=== PATIENT | male | born 1990 | race Caucasian/White ===

== ENCOUNTER 2020-07-26 08:10 | Outpatient (RCR) | payer BC, SELFPAY | END 2020-08-30 23:59 | LOC: IMMUN 08:10 | PROVIDERS: PCP Family Medicine; Referring Provider Family Medicine; Visit Provider Family Medicine | DX: Z23 Encounter for immunization (principal) | CPT/HCPCS: 0001A; 0002A; 91300 ==

== ENCOUNTER → 2021-01-31 08:01 | Outpatient (CLI) | payer BC, SELFPAY | PROVIDERS: PCP Family Medicine; Referring Provider Physician Assistant; Visit Provider Physician Assistant | DX: Z11.52 Encounter for screening for COVID-19 (principal) | CPT/HCPCS: 87635; U0005; U0003 ==

== ENCOUNTER 2021-05-07 23:45 | Emergency (ER) | payer BC, SELFPAY ==
[2021-05-07 23:46] VITALS: BP 135/89; PULSE 81; TEMP 36.6; O2SAT 96; BMI 28.3
[2021-05-07 23:49] VITALS: BP 135/89; PULSE 84; RESP 28; TEMP 36.6; O2SAT 96
--- NOTE | 2021-05-08 00:02 | RAD_ITS ---
HISTORY: syncope EXAMINATION/TECHNIQUE: XR Chest 1 View: COMPARISON: None FINDINGS: LINES/DEVICES: None. LUNGS: No airspace consolidation. Unremarkable interstitium. No effusion. No pneumothorax. MEDIASTINUM: No cardiomegaly. MUSCULOSKELETAL: No acute osseous finding. RAD/Chest 1 View (Portable) IMPRESSION: No evidence of acute cardiopulmonary process. at 0036 Reported and signed by: Tanner Mason MD Electronically Signed: Tanner Mason MD at 0:34 EST ,
--- NOTE | 2021-05-08 00:02 | EKG12_ITS ---
Test Reason : DYSRHYTHMIA Blood Pressure : / mmHG Vent. Rate : 077 BPM Atrial Rate : 077 BPM P-R Int : 176 ms QRS Dur : 086 ms QT Int : 336 ms P-R-T Axes : 063 048 044 degrees QTc Int : 380 ms Normal sinus rhythm Normal ECG Confirmed by RICK MENARD, GREGG ([id number]), newspaper copy editor JAIME KAHN ([id number]) on 05/09/2021 10:10:55 AM Referred By: YANN Confirmed By:GREGG CABRERA MD
--- NOTE | 2021-05-08 00:02 | CT_ITS ---
HISTORY: fall TECHNIQUE: Helically acquired images were obtained of the cervical spine without contrast. 2D reformatted images were reviewed. A radiation dose optimization technique was used for this scan. COMPARISON: None FINDINGS: # of images incl. paperwork: 442 SOFT TISSUES: No prevertebral soft tissue swelling. ALIGNMENT: Straightening of the normal cervical lordosis without listhesis. FRACTURE: No fracture or acute compression deformity. DISC SPACES/POSTERIOR ELEMENTS: Slight posterior disc osteophyte complexes C3-C4 and C4-C5 without significant spinal canal or neuroforaminal stenosis LUNG APICES: Visualized portions are unremarkable. THYROID: Visualized portions are unremarkable. SKULL BASE: Visualized portions are unremarkable. CT/Spine Cervical without Contras IMPRESSION: No acute fracture or subluxation. Mild straightening of the normal cervical lordosis which can be positional, degenerative, or secondary to muscle spasm. Minimal spondylosis as above. Individualized dose optimization techniques were used for this CT. at 0109 Reported and signed by: Tanner Mason MD Electronically Signed: Tanner Mason MD at 1:08 EST ,
--- NOTE | 2021-05-08 00:02 | CT_ITS ---
HISTORY: syncope TECHNIQUE: Multiple axial images were obtained of the brain without intravenous contrast. Coronal and sagittal reformats obtained. Bone algorithm axial images obtained. A radiation dose optimization technique was used for this scan. COMPARISON: None FINDINGS: # of images incl. paperwork: 244 HEMORRHAGE: No evidence of acute intracranial hemorrhage. CEREBRAL PARENCHYMA: --Volume: Unremarkable for age. --White matter: Unremarkable. --Mass: No evidence of intracranial mass. --Stroke: Gomes-white matter differentiation is preserved. VENTRICULAR SYSTEM: No hydrocephalus. MASS EFFECT: No midline shift or focal sulci effacement. Basal cisterns are preserved. SCALP: No large scalp hematoma. CALVARIUM/SKULL BASE: No fracture. PARANASAL SINUSES: Scattered mild mucoperiosteal thickening MASTOID AIR CELLS: Clear. ORBITS: Imaged portions are unremarkable. ASPECTS acute stroke score: 10 CT/Brain/Head without Contrast IMPRESSION: No CT evidence of acute intracranial hemorrhage or injury. Scattered mild sinus disease. Individualized dose optimization techniques were used for this CT. at 0113 Reported and signed by: Tanner Mason MD Electronically Signed: Tanner Mason MD at 1:11 EST ,
--- NOTE | 2021-05-08 00:04 | EX.ED.VIS.HA ---
HPI History of Present Illness Chief Complaint: Head Injury Narrative Narrative: 30-year-old male presenting for evaluation after an episode of syncope. His reports that she heard a crash and went to help him up and the patient felt like he was going to faint again when trying to get up. He states he was unconscious and does not recall how he got where he was at. He does report feeling confused and his states he seemed confused. He is currently at his baseline. Patient has no history of syncope. He was assisted by his family and walking so he can come to the emergency room. He states he does still feel lightheaded. The patient states that a couple hours before he had a severe headache and took Excedrin Migraine. He does not describe this as a thunderclap headache or acute onset headache. The patient reports that he has been ill for a couple of days. He describes nausea without vomiting. He has had diarrhea but does not describe this is diffuse. He states has been drinking Gatorade and has been urinating. He states he has had a fever but his temperature is only been 100 ?F. He does have some nasal congestion and slight cough. Patient reports that he had COVID 3 months ago and recovered. Patient denies chest pain. He states that he used to have high blood pressure but he has lost a lot of weight and no longer has this. He states that his brother at a young age due to poor lifestyle and he was morbidly obese. He states that he in his sleep. He also states that his brother was ill chronically prior to this. Patient states this is what drove him to lose weight. PFSH PFS Home Medications uopblps-yfcozrkiqwuok-cbdwrqzi [Excedrin Migraine] 1 tab PO Q6H PRN 05/07/21 [History Last Taken Unknown] ondansetron 4 mg PO Q8H PRN #10 tab 05/08/21 [Rx Last Taken Unknown] Allergy/AdvReac Type Severity Reaction Status Date / Time No Known Allergies Allergy Verified 05/07/21 23:51 Surgical History History of tonsillectomy [place] teeth extracted Social History Smoking Status: Never smoker ROS ROS ED Constitutional Constitutional ED: Reports subjective; Denies chills or sweats Eyes Eyes: Denies blurry vision or diplopia ENT ENT ED: Reports rhinorrhea Cardiovascular Cardiovascular: Denies chest pain or palpitations Respiratory/Chest Respiratory/Chest: Reports cough; Denies dyspnea Gastrointestinal Gastrointestinal: Reports diarrhea and nausea; Denies abdominal pain Genitourinary Genitourinary ED: Denies dysuria or hematuria Musculoskeletal Musculoskeletal: Denies arthralgias or myalgias Integumentary Denies Abrasions or rash Neurologic Neurologic: Reports headache(s); Denies paresthesias or weakness Psychiatric Psychiatric: Denies anxiety or depression EXAM Physical Exam Const Vital Signs: 05/07/21 23:46 05/07/21 23:49 05/07/21 23:50 Temperature 97.9 F 97.9 F Temperature Source Temporal Temporal Pulse Rate 81 84 Pulse Rate [Lying] Pulse Rate [Sitting (for 1 minute prior to obtaining)] Pulse Rate [Standing (for 1 minute prior to obtaining)] Respiratory Rate 28 H Respiratory Effort Normal Respiratory Pattern Normal Blood Pressure 135/89 H 135/89 H Blood Pressure [Lying] Blood Pressure [Sitting (for 1 minute prior to obtaining)] Blood Pressure [Standing (for 1 minute prior to obtaining)] Blood Pressure Mean 104 104 Blood Pressure Mean [Lying] Blood Pressure Mean [Sitting (for 1 minute prior to obtaining)] Blood Pressure Mean [Standing (for 1 minute prior to obtaining)] Pulse Ox 96 96 Oxygen Delivery Method Room Air Room Air 05/08/21 00:10 05/08/21 00:12 05/08/21 01:22 Temperature Temperature Source Pulse Rate 66 Pulse Rate [Lying] 75 Pulse Rate [Sitting (for 1 minute prior to obtaining)] 85 Pulse Rate [Standing (for 1 minute prior to obtaining)] 92 Respiratory Rate 18 Respiratory Effort Respiratory Pattern Blood Pressure 125/78 H Blood Pressure [Lying] 131/81 H Blood Pressure [Sitting (for 1 minute prior to obtaining)] 121/87 H Blood Pressure [Standing (for 1 minute prior to obtaining)] 121/90 H Blood Pressure Mean 93 Blood Pressure Mean [Lying] 97 Blood Pressure Mean [Sitting (for 1 minute prior to obtaining)] 98 Blood Pressure Mean [Standing (for 1 minute prior to obtaining)] 100 Pulse Ox 98 Oxygen Delivery Method Room Air Room Air Positive well nourished General Appearance ED: NAD; Negative for pallor HEENT Reports normocephalic and moist mucous membranes atraumatic Eyes PERRL and EOMs intact bilaterally Neck no lymphadenopathy, supple and no meningeal signs Resp normal respiratory effort and clear to auscultation bilaterally Cardio regular rate and regular rhythm GI non-tender and non-distended Auscultation: normoactive bowel sounds Palpation: soft Back/Spine no CVA tenderness Neuro CN's II-XII intact bilaterally and no sensory deficits noted Sensorium / Orientation: awake and alert Speech: speech normal Motor Exam: strength 5/5 throughout Psych mental status grossly normal Skin General Skin Exam: Negative for jaundice or pallor Rashes: no rashes MDM MDM MDM Narrative Medical decision making narrative: Patient presenting with mild viral symptoms for the last couple of days. Its been throughout his whole household. He states that he is drinking plenty of fluids but not eating very much. He states he fell and hit his head and was unconscious for short duration. When trying to get back up he felt lightheaded. On arrival he was still experiencing this. He is not having chest pain or shortness of breath. Has not had a fever. Patient does complain of rhinorrhea and congestion. He was given Zofran for his nausea. Given his episode of syncope and a history of his brother of a cardiac source so young I did obtain a cardiac work-up. His EKG on my interpretation is normal sinus rhythm with a ventricular to 77 bpm without sign of ischemic change or dysrhythmia. Specifically there is no WPW, Brugada syndrome, hypertrophic cardiomyopathy findings. Chest x-ray on my interpretation shows no acute cardiopulmonary process and the radiologist does agree. Because the patient had a headache and fell and is still lightheaded after LOC did obtain a CT of the brain which is negative for acute intracranial pathology although there is some noted scattered sinus findings. CT of the cervical spine shows no acute fracture or subluxation but is interpreted as straightening of the normal lordosis. CBC, BMP, LFTs all within normal limits. High-sensitivity troponin is less than 3. Orthostatic vitals were performed and his blood pressures were appropriate however his heart rates goes from 75-92. Patient was given a liter of IV fluids. Currently patient feels well. Discussed at length his negative work-up. Based on [place] syncope rule he is low risk and can be discharged home. I discussed with him concussion signs and symptoms as well as precautions for return. He and his acknowledge understanding. He does not need to be tested for Covid as he just had just 3 months ago. He request a work note for today which was provided. He is given Zofran for home. Impression: 1. viral syndrome 2. Syncope 3. Concussion Lab Data Labs: Laboratory Results - last 24 hr 05/07/21 05/07/21 05/07/21 23:55 23:55 23:55 WBC 7.0 RBC 5.25 Hgb 16.2 Hct 45.2 MCV 86.1 MCH 30.9 MCHC 35.8 RDW Std Deviation 37.2 RDW Coeff of Marj 11.8 Plt Count 225 MPV 8.9 Immature Gran % (Auto) 0.300 Neut % (Auto) 78.9 H Lymph % (Auto) 13.6 L [place] % (Auto) 6.0 Eos % (Auto) 1.1 Baso % (Auto) 0.1 Absolute Neuts (auto) 5.5 Absolute Lymphs (auto) 0.95 Nucleated RBC % 0 Sodium 136 Potassium 3.8 Chloride 106 Carbon Dioxide 25.0 Anion Gap 5 BUN 11 Creatinine 0.96 Estim Creat Clear Calc 132.01 Est GFR (MDRD) Af Amer 119 Est GFR (MDRD) Non-Af 99 BUN/Creatinine Ratio 11.5 Glucose 125 H Calcium 8.8 Total Bilirubin 0.70 Direct Bilirubin 0.17 AST 12 L ALT 20 Alkaline Phosphatase 71 Troponin I High Sens < 3 L Total Protein 7.2 Albumin 3.7 Globulin 3.5 Radiography Diagnostic Testing: Clinical Impression(s) from Imaging Studies Brain CT 05/08/21 00:02 IMPRESSION: No CT evidence of acute intracranial hemorrhage or injury. Scattered mild sinus disease. Individualized dose optimization techniques were used for this CT. at 0113 Reported and signed by: Tanner Mason MD Electronically Signed: Tanner Mason MD at 1:11 EST , Cervical Spine CT 05/08/21 00:02 IMPRESSION: No acute fracture or subluxation. Mild straightening of the normal cervical lordosis which can be positional, degenerative, or secondary to muscle spasm. Minimal spondylosis as above. Individualized dose optimization techniques were used for this CT. at 0109 Reported and signed by: Tanner Mason MD Electronically Signed: Tanner Mason MD at 1:08 EST Reading Location ID and State: [facility] / [place] Tel , Service support , Chest X-Ray 05/08/21 00:02 IMPRESSION: No evidence of acute cardiopulmonary process. at 0036 Reported and signed by: Tanner Mason MD Electronically Signed: Tanner Mason MD at 0:34 EST , Discharge Plan Triage Chief Complaint: Head Injury ED Provider: Anthony Flood Dx/Rx/DC Orders Instructions: ED Concussion, ED Fainting, Uncertain Cause, ED Viral Syndrome (Adult) Prescriptions: New ondansetron 4 mg tablet,disintegrating 4 mg PO Q8H PRN (Reason: nausea and vomiting) Qty: 10 RF: 0 No Action Excedrin Migraine 250-250-65 mg Tablet 1 tab PO Q6H PRN (Reason: Headache) RF: 0 Stand Alone Forms: ED Work / School Excuse Primary Care Provider: Rob Martinez Referrals: Rob Martinez MD [Primary Care Provider] - Disposition Disposition: Home, Self Care
[2021-05-08] MEDS: Ondansetron 4 MG/2 ML Vial IV (00:09)
[2021-05-08 00:12] VITALS: BP 121/87; BP 121/90; BP 131/81; PULSE 75; PULSE 85; PULSE 92
[2021-05-08 00:13] LABS: Absolute Lymphocyte Count 0.95 X10^3/uL (0.83-4.51); Absolute Neutrophil Count 5.5 X10^3/uL (2.0-7.7); Basophil# 0.01 X10^3/uL; Basophil% 0.1 % (0-1); Eosinophil# 0.08 X10^3/uL; Eosinophils% 1.1 % (0-5); Hematocrit 45.2 % (40-54); Hemoglobin 16.2 g/dL (13.0-16.5); Lymphocyte # 0.95 X10^3/ul (0.83-4.51); Lymphocyte % 13.6 % (19-41); Mean Corp Hgb Conc 35.8 g/dL (32-36); Mean Corpuscular Hgb 30.9 pg (27.0-32.0); Mean Corpuscular Volume 86.1 fL (80-94); Mean Platelet Vol. 8.9 fl (6.2-12.0); Monocyte# 0.42 X10^3/uL; NRBC Flagged by Analyzer 0 % (0-5); Neutrophil # 5.49 X10^3/uL (2.7-7.7); Neutrophil % 78.9 % (47-70); Platelet Count 225 K/mm3 (150-450); RBC Distribution Width CV 11.8 % (11.6-14.6); RBC Distribution Width SD 37.2 fl (35.1-43.9); Red Blood Count 5.25 M/mm3 (4.6-6.2)
[2021-05-08 00:39] LABS: Anion Gap 5 (5-15); BUN 11 mg/dL (7-18); BUN/Creat Ratio 11.5 RATIO (10-20); Calcium,Total 8.8 mg/dL (8.5-10.1); Chloride 106 mmol/L (98-107); Creatinine, Serum 0.96 mg/dL (0.70-1.30); EST Glomerular Filtration Rate 99 mL/min (>60); Est Glom Filt Rate - Afr Amer 119 mL/min (>60); Estimated Creatinine Clearance 132.01 ml/min; Glucose 125 mg/dL (74-106); Potassium 3.8 mmol/L (3.5-5.1); Sodium Level 136 mmol/L (136-145); Troponin-I HS < 3 pg/mL (3.0-78.0)
[2021-05-08 00:40] LABS: AST(SGOT) 12 U/L (15-37); Alanine Aminotransfer ALT/SGPT 20 U/L (16-61); Albumin, Serum 3.7 g/dL (3.2-5.0); Alkaline Phosphatase 71 U/L (45-117); Bilirubin, Direct 0.17 mg/dL (0.00-0.30); Globulin 3.5 g/dL (2.2-4.2); Protein, Total 7.2 g/dL (6.4-8.2)
[2021-05-08] MEDS: 0.9% Normal Saline 1,000 ML 999 ML IV (00:45)
[2021-05-08 01:22] VITALS: BP 125/78; PULSE 66; RESP 18; O2SAT 98
[2021-05-08 01:44] VITALS: BP 138/85; PULSE 70; RESP 22; O2SAT 97
== END 2021-05-08 01:47 | disposition home or self-care (01) ==
PROVIDERS: Emergency Provider Student in an Organized Health Care Education/Training Program; PCP Family Medicine; Visit Provider Student in an Organized Health Care Education/Training Program
DX: S06.0X0A Concussion without loss of consciousness, initial encounter (principal); E66.01 Morbid (severe) obesity due to excess calories; J34.89 Other specified disorders of nose and nasal sinuses; R09.81 Nasal congestion; R11.0 Nausea; B34.9 Viral infection, unspecified; R19.7 Diarrhea, unspecified; R03.0 Elevated blood-pressure reading, without diagnosis of hypertension
CPT/HCPCS: 70450; 71045; 72125; 80048; 80076; 84484; 85025; 93005; 99285; J7030; A4216; J2405

== ENCOUNTER 2021-12-22 23:23 | Emergency (ER) | payer BC, SELFPAY ==
[2021-12-22 23:24] VITALS: BP 150/88; PULSE 91; RESP 18; TEMP 36.6; O2SAT 98; BMI 28.5
--- NOTE | 2021-12-22 23:50 | EX.ED.DYSGE1 ---
HPI History of Present Illness Chief Complaint: Dizziness Narrative Narrative: 31-year-old male presenting with lightheadedness and dizziness. He states he has been having problems with this for several months. He states that he has recently been diagnosed with anxiety after testing this in the office and he was started on Zoloft 3 days ago when he is taking a half dose of this for the first 2 weeks. He states that he was diagnosed with this because he noticed that in crowds he would become a little more anxious and his heart rate would race and his blood pressure would spike. During his last office visit this occurred. He states he is not anxious to go to the doctor's office but he did experience stress and it was noted. He notes that he has been a little bit lightheaded over the last 3 days. Today he went to have a bowel movement and states he was straining a little bit while he was on the toilet he felt like he was a little bit faint and he became sweaty and nauseous. He also states he had some palpitations. This resolved. He states he has had an echocardiogram done last year and they wanted to repeat it again this year to make sure nothing changed. He is also had a CT of his brain and MRI of his brain as well. He states all of this was negative. He does not have a headache. Denies fevers or chills. He had some nausea but this resolved. [facility] Medical History Anxiety Depression Dizziness Home Medications epdfvyo-mrpwhjhxwtpum-sqwicmfd 250 mg-250 mg-65 mg tablet (Excedrin Migraine) 1 tab PO Q6H PRN Headache 05/07/21 [History Last Taken Unknown] cholecalciferol (vitamin D3) 1,250 mcg (50,000 unit) capsule 1,250 mcg PO DAILY 12/22/21 [History Last Taken Unknown] sertraline 50 mg tablet 25 mg PO DAILY 12/22/21 [History Last Taken Unknown] meclizine 25 mg tablet 25 mg PO TID PRN dizziness #20 tabs 12/23/21 [Rx Last Taken Unknown] promethazine 25 mg tablet 25 mg PO Q6H PRN nausea and vomiting #20 tabs 12/23/21 [Rx Last Taken Unknown] Allergy/AdvReac Type Severity Reaction Status Date / Time No Known Allergies Allergy Verified 05/07/21 23:51 Surgical History History of tonsillectomy [place] teeth extracted Social History Smoking Status: Never smoker EXAM Physical Exam Const Vital Signs: 12/22/21 23:24 12/22/21 23:27 12/23/21 00:06 Temperature 97.8 F Temperature Source Temporal Pulse Rate 91 Pulse Rate [Lying] 86 Pulse Rate [Sitting (for 1 minute prior to obtaining)] 88 Pulse Rate [Standing (for 1 minute prior to obtaining)] 110 H Respiratory Rate 18 Respiratory Effort Normal Respiratory Pattern Normal Blood Pressure 150/88 H Blood Pressure [Lying] 136/80 H Blood Pressure [Sitting (for 1 minute prior to obtaining)] 137/86 H Blood Pressure [Standing (for 1 minute prior to obtaining)] 119/82 H Blood Pressure Mean 108 Blood Pressure Mean [Lying] 98 Blood Pressure Mean [Sitting (for 1 minute prior to obtaining)] 103 Blood Pressure Mean [Standing (for 1 minute prior to obtaining)] 94 Pulse Ox 98 Oxygen Delivery Method Room Air Positive well nourished General Appearance ED: NAD; Negative for pallor HEENT Reports moist mucous membranes HEENT Narrative: Haley-Hallpike positive bilaterally. Nystagmus noted greater to the left than to the right. Eyes PERRL and EOMs intact bilaterally General Eye ED: Negative for pale conjunctiva or scleral icterus Chest Wall inspection of chest normal Resp normal respiratory effort Cardio regular rate and regular rhythm GI normal to inspection, nondistended, normoactive bowel sounds Extremity normal to inspection Neuro oriented x3 and CN's II-XII intact bilaterally Sensorium / Orientation: alert Motor Exam: strength 5/5 throughout Psych mental status grossly normal Skin no rashes or lesions noted General Skin Exam: Negative for jaundice or pallor MDM MDM MDM Narrative Medical decision making narrative: Patient presenting with lightheadedness and dizziness which she describes as not quite vertiginous in nature. He states he has been having episodes of blood pressure spikes and heart rate spikes which he was recently diagnosed with anxiety. He started on Zoloft 3 days ago and is taking this currently. He is not sure if this is a medication side effect. He states he had an echocardiogram which was normal. He had normal MRI and CT of the brain. He had normal outpatient lab work. He states is not an active diagnosis for what his symptoms are except for the anxiety. He also states that he felt lightheaded and had palpitations while on the commode today but he also states he was straining to defecate prior to this. When he stood up he felt nauseous and lightheaded. Patient symptoms resolved. Reviewed the medical record and it is exact same symptoms he had in the doctor's office when he was there on 12/20/2021. MRI was reviewed from 12/10/2021 and this was normal. He had follow-up outpatient lab work after his basic lab work was returned on his last visit to the ER. Lipid profile was normal, TSH normal, B12 normal, folic acid normal. I will check an EKG to assess for dysrhythmia, I will also check left side vital signs. Patient given meclizine for the reproducible vertiginous dizziness. EKG normal sinus rhythm with ventricular rate of 94 bpm without sign of ischemic change. [place] interval 170 ms, QRS duration 90 ms, QTC 420 ms. Orthostatic vital signs are not definitive. His blood pressure goes from 136/80 lying to 137/86 sitting and then do drop to 119/82. Heart rate stays about the same. On reevaluation at 1:10 AM the patient states his dizziness is nearly resolved. He does not feel lightheaded now. He does not have any nausea. Again the lightheadedness is not a new issue it is possible he could have vasovagal while defecating. He does again have some reproducible vertigo which is better with meclizine. It is also possible his medication side effect. I counseled him I will give him some meclizine for home to help with the vertigo. He will have some Phenergan for nausea. I recommended he continue his sertraline. Patient amenable to this and stable for discharge. Impression: 1. lightheadedness 2. Near syncope 3. Vertigo Lab Data Attestation: I reviewed the patient's lab results. Discharge Plan Triage Chief Complaint: Dizziness ED Provider: Anthony Flood Dx/Rx/DC Orders Instructions: ED BPV Vertigo, ED Near-Fainting- Vagal Reaction Prescriptions: New meclizine 25 mg tablet 25 mg PO TID PRN (Reason: dizziness) Qty: 20 0RF promethazine 25 mg tablet 25 mg PO Q6H MDD wdf PRN (Reason: nausea and vomiting) Qty: 20 0RF No Action Excedrin Migraine 250-250-65 mg Tablet 1 tab PO Q6H PRN (Reason: Headache) sertraline 50 mg tablet 25 mg PO DAILY cholecalciferol (vitamin D3) 1,250 mcg (50,000 unit) capsule 1,250 mcg PO DAILY Label Comments: take 1 capsule by mouth ONCE EVERY WEEK Primary Care Provider: Rob Martinez Referrals: Rob Martinez MD [Primary Care Provider] - Disposition Disposition: Home, Self Care
--- NOTE | 2021-12-22 23:51 | EKG12_ITS ---
Test Reason : DYSRHYTHMIA Blood Pressure : / mmHG Vent. Rate : 094 BPM Atrial Rate : 094 BPM P-R Int : 172 ms QRS Dur : 090 ms QT Int : 336 ms P-R-T Axes : 063 050 038 degrees QTc Int : 420 ms Normal sinus rhythm Nonspecific ST and T wave abnormality Abnormal ECG Confirmed by RICK MENARD, GREGG ([id number]), publication editor JAIME KAHN ([id number]) on 12/23/2021 9:53:18 AM Referred By: BB Confirmed By:GREGG CABRERA MD
[2021-12-23] MEDS: Meclizine HCl 25 MG Tablet PO (00:03)
[2021-12-23] MEDS: proMETHazine 25 MG Tablet PO (00:03)
[2021-12-23 00:06] VITALS: BP 119/82; BP 136/80; BP 137/86; PULSE 110; PULSE 86; PULSE 88
[2021-12-23 01:16] VITALS: BP 134/84; PULSE 84; RESP 16; O2SAT 97
== END 2021-12-23 01:53 | disposition home or self-care (01) ==
PROVIDERS: Emergency Provider Student in an Organized Health Care Education/Training Program; PCP Family Medicine; Visit Provider Student in an Organized Health Care Education/Training Program
DX: R55 Syncope and collapse (principal); R42 Dizziness and giddiness; R11.0 Nausea; F41.9 Anxiety disorder, unspecified; F32.A Depression, unspecified
CPT/HCPCS: 93005; 99284

== ENCOUNTER 2023-09-18 07:32 | Day surgery (SDC) | payer BC, SELFPAY ==
--- NOTE | 2023-09-18 | LES_PTH ---
PATIENT: ANURAG GALEANO LOC: [facility] [place] U#:[id number] AGE/SX: 32/M ROOM: RE09/18/[address]: Dr. Arielle Gavin MD : 1990 BED: DIS: 09/18/2023 SPEC #: [id number] RECD: 09/18/23 13:46 STATUS: KISHOR REQ #: [id number] ROSELIA: 09/18/23 00:[address]: Areille Gavin DEPT: SURGICAL PATHOLOGY RECD BY: Vamsi Barry ENTERED: 09/18/23 13:47 SP TYPE: Lesion OTHR DR: Dr. Rob Martinez MD Tissues: Skin of head and neck, NOS Procedures: Surgery Specimen Level IV HEADER OPERATION: Excision subcutaneous mass left posterior neck 2.5cm PRE-OP DIAGNOSIS: Neoplasm of uncertain behavior of connective and other soft tissue TISSUE SUBMITTED: Neoplasm of uncertain behavior of connective and other soft tissue, left posterior neck MICROSCOPIC DIAGNOSIS Posterior neck lesion, excisional biopsy: Epidermal inclusion cyst. / 09/21/2023 MICROSCOPIC DESCRIPTION Slides are reviewed. GROSS DESCRIPTION Received in fixative is one container labeled with the patient's name and designated Neoplasm uncertain behavior of connective and other soft tissue left posterior neck. The specimen consists of a piece with underlying tissue. The skin piece measures 1.7 x 0.5cm and the underlying tissue measures 1.7 x 1.2 x 1.0cm. The specimen is inked, serially sectioned. Sections reveal a cyst in the underlying tissue filled with arzola-white cheesy material measuring 1.5 cm in greatest dimension. The entire specimen is submitted in one cassette. / 09/18/2023 TC:5 CPT:61058
[2023-09-18 07:59] VITALS: BP 144/87; PULSE 81; RESP 18; TEMP 36.1; O2SAT 100; BMI 31.0
--- NOTE | 2023-09-18 08:27 | PCM.HP.BLA ---
History and Physical Date of Admission: 09/18/23 The patient is examined and there are no changes from the H&P dated 09/01/23. Pt for excision lesion posterior neck. Informed consent obtained. Assessment & Plan Assessment/Plan (1) Neoplasm of uncertain behavior of connective and other soft tissue: PLAN: Plan For excision lesion neck.
[2023-09-18 08:42] VITALS: BP 116/71; BP 117/79; BP 138/80; O2SAT 95; O2SAT 96; O2SAT 97; O2SAT 98
[2023-09-18] MEDS: Lidocaine 1% /Epi 1:100 9 ML, Sodium Bicarbonate 1 MEQ OPERA.SITE (09:06)
--- NOTE | 2023-09-18 09:38 | DCINST_ITS ---
Discharge Instructions Dressing / Incision Additional Dressing/Incision Instructions:: Sleep in a recliner position for the next 2-3 nights to avoid bruising and swelling. Take the oral antibiotic (Keflex) 2 x a day until finished. Try to avoid getting the paper tape wet. If the tape falls off, apply a thin layer of an antibiotic ointment 1 x a day. Follow Up Care Please Follow Up With: Arielle Gavin MD Test Results: Test results from this visit will be discussed in further detail at your follow- up appointment, if applicable. Discharge Plan Admission Attending Provider: Arielle Gavin Primary Care Provider: Rob Martinez Instructions Print Language: Mosotho Discharge Orders/Prescriptions Prescriptions: New cephalexin 500 mg capsule 500 mg PO BID 5 Days Qty: 10 0RF No Action sertraline [Zoloft] 100 mg tablet 100 mg PO QHS bupropion HCl [Wellbutrin SR] 150 mg tablet sustained-release 12 hr 150 mg PO DAILY multivitamin Tablet 1 tab PO DAILY Referrals / Follow Up: Rob Martinez MD [Primary Care Provider] - Disposition Disposition (needs filled in before D/C Order can be placed): Home, Self Care
--- NOTE | 2023-09-18 09:41 | PCM.OPRPT ---
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 The neck is prepped and draped in the usual sterile fashion. 1% xylocaine with epinephrine is used for local anesthesia. An eliptical incision is made over the apex of the mass. Careful scissor dissection reveals the solid mass. It is dissected free and passed off the operative field to be sent to pathology. Hemostasis is controlled with cautery. The wound is then closed with monocryl suture in the subcutaneous plane and dermis. Skin edges are approximated with a running subcuticular monocryl suture. The site is dressed with dermabond and steri-strips. He tolerated the procedure well. Needle and sponge counts are correct. Complications none Admit VTE Documentation VTE Mechan Device Prophylaxis: SCD's
[2023-09-18 10:09] VITALS: BP 131/86; PULSE 78; RESP 16; TEMP 36.7; O2SAT 99
== END 2023-09-18 10:12 | disposition home or self-care (01) ==
LOC: SDC 07:34 → AC 07:34
PROVIDERS: PCP Family Medicine; Referring Provider Plastic Surgery; Visit Provider Plastic Surgery
PROC: (CPT 11423; principal; 2023-09-18 09:10)
DX: L72.0 Epidermal cyst (principal); Z79.899 Other long term (current) drug therapy
CPT/HCPCS: 11423; 88305

== ENCOUNTER → 2023-11-30 | Outpatient (CLI) | payer BC, SELFPAY ==
--- NOTE | 2023-11-30 14:29 | RAD_ITS ---
STUDY: X-RAY - LEFT HAND REASON FOR EXAM: Male, 32 years old. Left hand mass. TECHNIQUE: 3 view(s) of the hand. COMPARISON: None. FINDINGS: Normal radiocarpal articulation. Normal distal radioulnar joint. Normal visualized carpal bones. Normal carpal articulations Normal carpometacarpal articulation of the thumb. Normal second through fifth carpometacarpal joints. Normal metacarpi. Normal metacarpophalangeal joint of the thumb. Normal interphalangeal joint of the thumb. Normal proximal and distal phalanges of the thumb. Normal metacarpophalangeal joints of the second through fifth fingers. Normal proximal and distal interphalangeal joints of the second through fifth fingers. Normal phalanges of the second through fifth fingers. The soft tissue structures are normal. RAD/Hand Min 3 Views IMPRESSION: Normal x-ray examination of the hand. Electronically Signed: Sebastian Cabello MD at 15:03 EDT ,
== END | disposition home or self-care (01) ==
LOC: RAD 14:26
PROVIDERS: PCP Family Medicine; Referring Provider Nurse Practitioner Family; Visit Provider Nurse Practitioner Family
DX: R22.30 Localized swelling, mass and lump, unspecified upper limb (principal)
CPT/HCPCS: 73130

== ENCOUNTER 2024-01-22 05:52 | Day surgery (SDC) | payer BC, SELFPAY ==
[2024-01-22] VITALS (10 sets, daily range): BP systolic 97–143; BP diastolic 51–91; PULSE 81–95; RESP 14–16; TEMP 36.3–36.9; O2SAT 91–98; BMI 30.9
[2024-01-22] MEDS: Lactated Ringers 1,000 ML 15 ML IV (06:37)
--- NOTE | 2024-01-22 06:47 | PCM.PRE.AN2 ---
ASA Classification* ASA Classification ASA Classification: 2 Assessment & Plan Anesthesia* Anesthesia Assessment Anesthesia Assessment: Discussed sedation and/or anesthesia options, risks, benefits, and alternatives with patient/parents/legal guardian/POA. Questions invited. The patient/parents/legal guardian/POA seems to understand and agrees to proceed with anesthesia plan. Reviewed the physical assessment, medical history, allergy history and patient home medications list prior to surgery/procedure/anesthetic and documented any changes. Performed airway and anesthesia risk assessments. Anesthesia Type Anesthesia Type: General Anesthesia Focused Assessment* Temperature: 98.5 F Pulse Rate: 81 Blood Pressure: 143/91 Respiratory Rate: 14 Pulse Ox: 97 Airway Assessment Mouth opens: >3 cm Mallampati Score: II Focused Labs Anesthesia Preop lab: CBC WBC 7.0 K/mm3 (4.4-11.0) 05/07/21 23:55 RBC 5.25 M/mm3 (4.6-6.2) 05/07/21 23:55 Hgb 16.2 g/dL (13.0-16.5) 05/07/21 23:55 Hct 45.2 % (40-54) 05/07/21 23:55 Plt Count 225 K/mm3 (150-450) 05/07/21 23:55 CHEMISTRY Potassium 3.8 mmol/L (3.5-5.1) 05/07/21 23:55 Sodium 136 mmol/L (136-145) 05/07/21 23:55 BUN 11 mg/dL (7-18) 05/07/21 23:55 Creatinine 0.96 mg/dL (0.70-1.30) 05/07/21 23:55 Glucose 91 mg/dL (74-106) 12/10/23 07:51 COAG Pre-Assessment Diagnosis/Proposed Procedure Planned Operative Procedure(s): BILAT GYNECOMASTIA Anesthesia History 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 When Was Last Pacemaker Check QUESTION #4 FULL TEXT: You/Your Family Experience fever (hyperthermia) with Anesthesia Last Oral Intake Last Oral intake: Last Oral Intake NPO since 22:00 01/22/24 06:25 Meds taken in AM with sips of No 01/22/24 06:25 water? Meds patient instructed to take am of surgery PONV PONV - polystyrene bead molder: PONV - polystyrene bead molder Female No 01/08/24 09:14 HX of Motion Sickness Yes 01/08/24 09:14 HX of N/V After Surgery Yes 01/08/24 09:14 Non-Smoker Yes 01/08/24 09:14 Duration of Surgery greater Yes 01/08/24 09:14 than 60 minutes Number of Risk Factors 4 01/08/24 09:14 PONV Score Severe Risk 01/08/24 09:14 Height & Weight Height & Weight: Anesthesia: Height & Weight Height 6 ft 2 in 01/22/24 06:25 Weight: 109.1 kg 01/22/24 06:25 Body Mass Index (BMI) 30.9 01/22/24 06:25 Respiratory Assessment Respiratory Assessment - polystyrene bead molder: Respiratory Tract Infection Hx - polystyrene bead molder Hx Respiratory Tract Infection No 01/08/24 09:14 STOP Sleep Apnea STOP Sleep Apnea - polystyrene bead molder: STOP Sleep Apnea - polystyrene bead molder Hx Hypertension Yes: CONTROLLED WITH MED 01/08/24 09:14 Hx Sleep Apnea No 01/08/24 09:14 CPAP BIPAP Do you snore loudly (louder No 01/08/24 09:14 than talking or can be heard Do you often feel tired/ No 01/08/24 09:14 fatigued/ sleepy during daytime? Has anyone observed you stop No 01/08/24 09:14 breathing during sleep? STOP Results Negative 01/08/24 09:14 QUESTION #5 FULL TEXT : Do you snore loudly (louder than talking or can be heard through closed doors)? 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 Specify any problems Hx of Preganancy in last 3 N/A 01/08/24 09:14 Months Nurse Filling Out Transfusion DSCHRIBER 01/08/24 09:14 & Questions: Date: 01/08/24 01/08/24 09:14 Time: 09:16 01/08/24 09:14 Patient unable to answer at this time (ie. confused, unrespo /Reproduction History /Reproductive History - polystyrene bead molder: /Reproductive Hx- polystyrene bead molder Hx Now No 01/08/24 09:14 Gestational Age (in weeks): EDC: Hx Hx Para Hx Section SAB No 01/08/24 09:14 Active Medications Active Medications: Current Medications Generic Name Dose Route Start Last Admin Trade Name Freq PRN Reason Stop Dose Admin Cefazolin Sodium 2 gm/ N/A 20 mls @ 400 mls/hr 01/22/24 07:30 IV 01/22/24 07:32 PREOP ONE Lactated Ringer's 1,000 mls @ 15 mls/hr 01/22/24 06:15 01/22/24 06:37 IV 01/27/24 19:34 15 mls/hr .Q48H TRACI Administration Protocol PFSH Medical History Wears glasses Wears contact lenses Alcohol use High cholesterol Sinus headache Injury of head and neck Loss of consciousness Heartburn Animal dander allergy Asthma Non-smoker History of echocardiogram History of stress test Hypertension History of vitamin D deficiency Anxiety Depression Home Medications ?Medication ?Instructions ?Recorded ?Last Taken ?Type bupropion HCl 150 mg tablet,12 hr 150 mg PO DAILY 09/01/23 01/21/24 History sustained-release (Wellbutrin SR) sertraline 100 mg tablet (Zoloft) 100 mg PO QHS 09/01/23 01/21/24 History lisinopril 10 mg tablet 10 mg PO DAILY 01/05/24 01/21/24 History cephalexin 500 mg capsule 500 mg PO BID 01/22/24 01/21/24 History Allergy/AdvReac Type Severity Reaction Status Date / Time No Known Allergies Allergy Verified 01/22/24 06:24 Family History Brother Alcoholism Cancer Grandmother Breast cancer Mother Diabetes Hypertension Father Hypertension Surgical History [place] teeth extracted History of tonsillectomy Social History Smoking Status: Never smoker alcohol intake: current details: rarely substance use type: does not use additional social history: pt denies vaping, pt denies edibles, denies marijuana use, pt denies aspirin use, denies iburprofen use. Review of Systems (Anesthesia) ROS Narrative System reviewed and no additional complaints, except as documented.
--- NOTE | 2024-01-22 07:22 | PCM.HP.BLA ---
History and Physical Date of Admission: 01/22/24 The patient is examined and there are no changes to the H&P dated 12/30/23. Pt for bilateral gynecomastia reduction. Informed consent was obtained. Assessment & Plan Assessment/Plan (1) Symptomatic mammary hypertrophy: PLAN: Plan For bilateral gynecomastia reduction.
--- NOTE | 2024-01-22 07:30 | BR_PTH ---
PATIENT: ANURAG GALEANO LOC: [facility] [place] U#:[id number] AGE/SX: 33/M ROOM: RE01/22/[address]: Dr. Arielle Gavin MD : 1990 BED: DIS: 01/22/2024 SPEC #: [id number] RECD: 01/22/24 13:10 STATUS: KISHOR REQ #: [id number] ROSELIA: 01/22/24 07:[address]: Arielle Gavin DEPT: SURGICAL PATHOLOGY RECD BY: Katalina De La Cruz ENTERED: 01/22/24 13:53 SP TYPE: MAMOPLASTY OTHR DR: Dr. Rob Martinez MD Tissues: A - Right breast, NOS B - Left breast, NOS Procedures: Surgery Specimen Level IV HEADER OPERATION: Bilateral gynecomastia PRE-OP DIAGNOSIS: Symptomatic mammary hypertrophy TISSUE SUBMITTED: A- Right breast - 108gm, B- Left breast - 112gm MICROSCOPIC DIAGNOSIS A. Right breast, lumpectomy: Mature adipose tissue. No evidence of malignancy. See comment. B. Left breast, lumpectomy: Mature adipose tissue. No evidence of malignancy. 01/27/2024 COMMENT A. Rare benign glandular epithelium is present. MICROSCOPIC DESCRIPTION Slides are reviewed. GROSS DESCRIPTION A. Received in fixative is one container labeled with the patient's name and designated Right breast tissue. The specimen consists of multiple discoid fragments of yellow fatty tissue measuring 10.0 x 10.0 x 3.0cm. The weight of the specimen in surgery is 108gm. The specimen is inked and serially sectioned and reveals homogenous yellow-white cut surfaces. No mass lesion is identified. Pulp Drier sections are submitted in five cassettes. Sections will be submitted after additional fixation. B. Received in fixative is one container labeled with the patient's name and designated Left breast tissue. The specimen consists of multiple discoid fragments of yellow fatty tissue measuring 11.0 x 9.5 x 3.0cm. The weight of the specimen in surgery is 108gm. The specimen is inked and serially sectioned and reveals homogenous yellow-white cut surfaces. No mass lesion is identified. Pulp Drier sections are submitted in five cassettes. Sections will be submitted after additional fixation. 01/25/2024 TC:5 CPT: 07653h3
[2024-01-22] MEDS: Cefazolin 2 GM in Syringe IV (07:45)
[2024-01-22] MEDS: Lidocaine 1% /Epi 1:100 (20ml) 20 ML Vial (07:59)
[2024-01-22] MEDS: Gentamicin 80 MG/2 ML Vial (08:02)
[2024-01-22] MEDS: Silver Sulfadiazine 1% Crm 50 gm Bottle 50 APPLIC TOPICAL (11:19)
[2024-01-22] MEDS: Bupiv/Epi 0.25% 30 ML Vial (11:37)
--- NOTE | 2024-01-22 12:00 | DCINST_ITS ---
Discharge Instructions Dressing / Incision Additional Dressing/Incision Instructions:: Leave the dressings in place. Follow the instructions given in the office. Empty JPs 2-3 times a day and record amounts. Bring the DOROTA spreadsheet to your postop appointment. Follow Up Care Please Follow Up With: Arielle Gavin MD When: 1 to 2 weeks Test Results: Test results from this visit will be discussed in further detail at your follow- up appointment, if applicable. Discharge Plan Admission Attending Provider: Arielle Gavin Primary Care Provider: Rob Martinez Instructions Print Language: Tamazight Discharge Orders/Prescriptions Prescriptions: No Action sertraline [Zoloft] 100 mg tablet 100 mg PO QHS bupropion HCl [Wellbutrin SR] 150 mg tablet sustained-release 12 hr 150 mg PO DAILY lisinopril 10 mg tablet 10 mg PO DAILY Patient Comments: [NO ORIGINAL SIG] cephalexin 500 mg capsule 500 mg PO BID Referrals / Follow Up: Rob Martinez MD [Primary Care Provider] - Disposition Disposition (needs filled in before D/C Order can be placed): Home, Self Care
--- NOTE | 2024-01-22 12:03 | PCM.OPRPT ---
Operative Report (Standard) Operative Information Surgery/Procedure Performed: Bilateral gynecomastia reduction (R?108 g; L?112 g) Surgeon: Arielle Gavin Date of Procedure: 01/22/24 Procedure Start Time: 08:02 Procedure Stop Time: 11:54 Pre-Operative Diagnosis: Bilateral gynecomastia Post-Operative Diagnosis: Same Select all DRAINS/GRAFTS/IMPLANTS that apply: Drains (DOROTA) Drain details: 1 on each side Type of Anesthesia: General Estimated Blood Loss: <25cc Specimen collected: Yes Description of specimen(s) removed: Breast tissue from right and left side Description of surgery: The patient presents for bilateral gynecomastia reduction. The procedure been thoroughly reviewed with the patient. He is marked in the preop holding area prior to surgery. The potential risks and complications of surgery were reviewed which include but are not exclusive of bleeding, infection, pain, numbness, asymmetry, scar tissue, skin necrosis, the need for further surgery, DVT, and even . The patient is brought to the operating room and placed under general anesthesia in the supine position. Care is to taken to pad all pressure points, insert a Polanco catheter, sequential compression stockings, and a warming blanket. The breast and chest are prepped and draped in the usual sterile fashion. We initially began with a periareolar incision that is carried down through the subcutaneous tissue with electrocautery maintaining a skin thickness of at least 2 cm. Dissection is carried over the dome of the breast tissue within the previously marked area. Following this, the breast tissue was taken off the muscular fascia. In this way, the entire pad of tissue is mobilized and brought out through the incision. The wound is irrigated with antibiotic solution and checked for hemostasis which is controlled with electrocautery. The same procedure is carried out on the opposite side. All tissue was passed off the operative field to be weighed and sent to pathology. The DOROTA drain is placed in both the incisions and brought out through the lateral aspect of the incision. It is anchored in place with nylon suture. The skin edges are then approximated in layers by initially placing Vicryl suture. Following this, a STRATAFIX suture was used to approximate the wound edges in 3 layers. All the air is evacuated from the pockets and 10 cc of 1/4% plain Marcaine are injected into the drains. The JPs are then placed but not compressed. The wounds are dressed with Xeroform. 2 small willams on the chest from the cautery were also dressed with Silvadene and Xeroform. Fluff gauze were placed on the chest and he is placed in a compression garment. He tolerated the procedure well was taken to the recovery area in an awake and stable condition. Needle and sponge counts are correct. Surgical Findings: Bilateral male breast tissue Assistant Plant Controller associate chief nurse: Yes Materials Recycler: Geraldine Kang Tasks completed by first aid trainer: Retracting Complications Complications: No Admit VTE Documentation VTE Mechan Device Prophylaxis: SCD's
--- NOTE | 2024-01-22 12:07 | PCM.POST.ANE ---
Anesthesia: Postop Eval I Current Vital Signs Temperature: 97.4 F Pulse Rate: 95 Blood Pressure: 97/51 Respiratory Rate: 16 Pulse Ox: 91 Oxygen Delivery Method: Room Air Assessment Airway patent: Yes Spontaneous unlabored respirations: Yes Mental status: Awake nausea: No Vomiting: No Anesthesia Complication: No Fluid Hydration Crystalloid volume administer (ml): 1,800 Total IV fluid infused: 1,800 Progress Note Anesthesia document: Postop Eval 1 completed: Yes
--- NOTE | 2024-01-22 13:09 | POSTOPAN2_ITS ---
Anesthesia Postop Eval I Sum Postop Eval Completion status Anesthesia document: Postop Eval 1 completed: Yes Anesthesia Postop Eval I Summary Anesthesia Postop Eval I Summary: Anesthesia Postop Eval I: Assessment Summary Airway patent Yes 01/22/24 12:08 EMERGENCY RESPONSE OFFICER.JDEF Spontaneous unlabored Yes 01/22/24 12:08 EMERGENCY RESPONSE OFFICER.JDEF respirations Mental status Awake 01/22/24 12:08 EMERGENCY RESPONSE OFFICER.JDEF nausea No 01/22/24 12:08 EMERGENCY RESPONSE OFFICER.JDEF Vomiting No 01/22/24 12:08 EMERGENCY RESPONSE OFFICER.JDEF Anesthesia Postop Eval I: Fluid Summary Crystalloid volume administer 1,800 01/22/24 12:08 EMERGENCY RESPONSE OFFICER.JDEF (ml) Colloids volume administered ( ml) Blood Product volume administered (ml) Total IV fluid infused 1,800 01/22/24 12:08 EMERGENCY RESPONSE OFFICER.JDEF Anesthesia Postop Eval I: Summary Notes Anesthesia Complication No 01/22/24 12:08 EMERGENCY RESPONSE OFFICER.JDEF Anesthesia Complication Comment: Post-operative progress note Anesthesia: Postop Eval II Evaluation Mental status: Awake Pain Level: 0 nausea: No Vomiting: No
--- NOTE | 2024-01-22 13:09 | PCM.POSTANE2 ---
Anesthesia Postop Eval I Sum Postop Eval Completion status Anesthesia document: Postop Eval 1 completed: Yes Anesthesia Postop Eval I Summary Anesthesia Postop Eval I Summary: Anesthesia Postop Eval I: Assessment Summary Airway patent Yes 01/22/24 12:08 PLANT FLOOR AUTOMATION MANAGER.JDEF Spontaneous unlabored Yes 01/22/24 12:08 PLANT FLOOR AUTOMATION MANAGER.JDEF respirations Mental status Awake 01/22/24 12:08 PLANT FLOOR AUTOMATION MANAGER.JDEF nausea No 01/22/24 12:08 PLANT FLOOR AUTOMATION MANAGER.JDEF Vomiting No 01/22/24 12:08 PLANT FLOOR AUTOMATION MANAGER.JDEF Anesthesia Postop Eval I: Fluid Summary Crystalloid volume administer 1,800 01/22/24 12:08 PLANT FLOOR AUTOMATION MANAGER.JDEF (ml) Colloids volume administered ( ml) Blood Product volume administered (ml) Total IV fluid infused 1,800 01/22/24 12:08 PLANT FLOOR AUTOMATION MANAGER.JDEF Anesthesia Postop Eval I: Summary Notes Anesthesia Complication No 01/22/24 12:08 PLANT FLOOR AUTOMATION MANAGER.JDEF Anesthesia Complication Comment: Post-operative progress note Anesthesia: Postop Eval II Evaluation Mental status: Awake Pain Level: 0 nausea: No Vomiting: No
== END 2024-01-22 15:26 | disposition home or self-care (01) ==
LOC: SDC 05:52 → AC 05:53
PROVIDERS: PCP Family Medicine; Referring Provider Plastic Surgery; Visit Provider Plastic Surgery
PROC: 0H0U0ZZ Alteration of Left Breast, Open Approach (ICD-10-PCS; CPT 19318; principal; 2024-01-22 07:15)
DX: N62 Hypertrophy of breast (principal); F41.9 Anxiety disorder, unspecified; F32.A Depression, unspecified; I10 Essential (primary) hypertension; Z79.899 Other long term (current) drug therapy; T21.11XA Burn of first degree of chest wall, initial encounter; L76.81 Other intraoperative complications of skin and subcutaneous tissue; E78.00 Pure hypercholesterolemia, unspecified; Y65.8 Other specified misadventures during surgical and medical care; Y92.234 Operating room of hospital as the place of occurrence of the external cause
CPT/HCPCS: 19318; 00402; 88305; J7120; A4216; J2405

== ENCOUNTER 2024-01-25 08:40 | Emergency (ER) | payer BC, SELFPAY ==
[2024-01-25 08:41] VITALS: BP 150/98; PULSE 82; RESP 18; TEMP 36.3; O2SAT 100; BMI 30.8
--- NOTE | 2024-01-25 08:59 | VDUE_ITS ---
Reason For Study: Pain RUE Right Proximal Left Proximal Right jugular vein is spontaneous, widely Left subclavian vein is spontaneous, widely patent, phasic, with no intraluminal patent, phasic, with no intraluminal echogenicity noted. echogenicity noted. Right subclavian vein is spontaneous, widely patent, phasic, with no intraluminal echogenicity noted. Right Lower Arm Right radial vein is compressible. Right ulnar vein is compressible. Right Arm Right axillary vein is spontaneous, patent, phasic, competent, compressible and demonstrates augmentation. Right brachial vein is compressible. Rt CephV is DILATED and NON COMPRESSIBLE from wrist to just above antecub, compressible in the upper arm. Right basilic vein is compressible. VL/Venous Duplex US, Unilateral Interpretation Summary Positive for acute superficial vein thrombosis in the right cephalic vein. Deep veins of the right upper extremity are patent and compressible segmentally . There is no evidence of deep vein thrombosis. Ordering Physician: Blanca Bang Referring Physician: Rob Martinez Performed By: Crystal Salazar, BRITTON, RVT ???
--- NOTE | 2024-01-25 09:03 | EX.ED.DYSGE1 ---
HPI History of Present Illness Chief Complaint: Edema Informant: patient Narrative Narrative: Patient is a 33-year-old [id number] male presenting with right upper extremity pains, swelling and redness. Patient had gone to vascular surgery 3 days ago. He had an IV in his right hand. Yesterday he started to notice some mild discomfort to his right hands and redness. It progressed yesterday evening and is worsened throughout the night. He states initially was achy but is now more painful. He denies any fever or chills. Does feel that his right hand/wrist is swollen compared to the left and there is redness streaking up his forearm. He spoke to the on-call who thought it might be phlebitis or irritation from the IV but recommend he come in to make sure he does not have a DVT or other more acute process. Patient is currently on Keflex for surgical prophylaxis. He is been taking Tylenol for pain. Has not had any NSAIDs. Denies any other injury or trauma. Denies any bony tenderness. Denies any swelling of his legs. States he has been wearing compression stockings. Denies any increase in the drainage from his bilateral chest drains and notes that the color is actually clearing up. Denies any purulent drainage. No other complaints or concerns at this time. [facility] Medical History Wears glasses Wears contact lenses Alcohol use High cholesterol Sinus headache Injury of head and neck Loss of consciousness Heartburn Animal dander allergy Asthma Non-smoker History of echocardiogram History of stress test Hypertension History of vitamin D deficiency Anxiety Depression Home Medications ?Medication ?Instructions ?Recorded ?Last Taken ?Type bupropion HCl 150 mg tablet,12 hr 150 mg PO DAILY 09/01/23 01/21/24 History sustained-release (Wellbutrin SR) sertraline 100 mg tablet (Zoloft) 100 mg PO QHS 09/01/23 01/21/24 History lisinopril 10 mg tablet 10 mg PO DAILY 01/05/24 01/21/24 History cephalexin 500 mg capsule 500 mg PO BID 01/22/24 01/21/24 History ibuprofen 600 mg tablet 600 mg PO Q6H PRN PRN pain #20 01/25/24 Unknown Rx TABLETS Allergy/AdvReac Type Severity Reaction Status Date / Time No Known Allergies Allergy Verified 01/22/24 06:24 Family History Brother Alcoholism Cancer Grandmother Breast cancer Mother Diabetes Hypertension Father Hypertension Surgical History [place] teeth extracted History of tonsillectomy Social History Smoking Status: Never smoker alcohol intake: current details: rarely substance use type: does not use additional social history: pt denies vaping, pt denies edibles, denies marijuana use, pt denies aspirin use, denies iburprofen use. ROS ROS ED Constitutional Constitutional ED: Denies chills or fever(s) Cardiovascular Cardiovascular: Denies chest pain Respiratory/Chest Respiratory/Chest: Reports other Details: Expected postoperative chest pain ; Denies cough or dyspnea Gastrointestinal Gastrointestinal: Denies nausea or vomiting Musculoskeletal Musculoskeletal: Reports other Details: right arm pain Integumentary Reports rash Neurologic Neurologic: Denies paresthesias or weakness Psychiatric Psychiatric: Denies anxiety Hematologic/Lymphatic Hematologic/Lymphatic: Denies easy bleeding or easy bruising EXAM Physical Exam Const Vital Signs: 01/25/24 08:41 01/25/24 10:00 Temperature 97.3 F L 98.2 F Temperature Source Oral Oral Pulse Rate 82 98 Respiratory Rate 18 19 H Blood Pressure 150/98 H 148/71 H Blood Pressure Mean 115 96 Pulse Ox 100 98 Oxygen Delivery Method Room Air Room Air Positive well nourished and well developed General Appearance ED: well developed and NAD HEENT Reports moist mucous membranes Neck supple Chest Wall Chest Narrative: Compression vest in place from recent surgery. [place] drains in place from the chest draining serosanguineous fluid. Resp normal respiratory effort and clear to auscultation bilaterally Cardio regular rate and regular rhythm Cardio Narrative: 2+ radial pulses. GI normal to inspection, nondistended, normoactive bowel sounds, non-tender and non-distended Extremity Extremity Narrative: Normal range of motion of the extremities. No edema. No palpable cords. Mild tenderness palpation along the dorsal aspect of the right forearm consistent with associated erythema and phlebitis. Compartments are soft. No short arc range of motion pain of the joints. Neuro oriented x3 Sensorium / Orientation: alert Motor Exam: Negative for general weakness Psych mental status grossly normal Skin Skin Narrative: Patient has mild area of erythema extending from IV site on the dorsum of the right hand up towards the elbow. It is consistent with a phlebitis. It is tender to palpation. No crepitus appreciated. MDM MDM MDM Narrative Medical decision making narrative: Patient is evaluate for atraumatic redness and swelling to his right upper extremity. Clinically patient has phlebitis of his right forearm stemming from the IV site from his right hand. He is well-appearing. Departments are soft. I do not think this is cellulitis. Venous duplex of the upper extremities obtained consistent with a superficial thrombophlebitis at that site. Patient started on NSAIDs. Is given an Parker wrap. I discussed the case with his surgeon, Dr. Gavin, who also evaluated the patient in the ER. She is agreeable this plan of care. Patient given return precautions. Started on NSAID therapy and counseled cool compresses to the area. Patient has slight movement of pain with NSAIDs in the emergency room. At this time I feel that the risk of anticoagulation outweigh the benefit as he does not have a DVT of the upper extremity. He is already on Keflex and I believe the redness is inflammatory and not infectious. I do not think he needs further antibiotics or change in his antibiotics. Discharge Plan Triage Chief Complaint: Edema ED Provider: Blanca Bang Dx/Rx/DC Orders Clinical Impression: Superficial thrombophlebitis of right upper extremity Instructions: ED Thrombophlebitis, Superficial Prescriptions: New ibuprofen 600 mg tablet 600 mg PO Q6H PRN PRN (Reason: pain) Qty: 20 0RF No Action sertraline [Zoloft] 100 mg tablet 100 mg PO QHS bupropion HCl [Wellbutrin SR] 150 mg tablet sustained-release 12 hr 150 mg PO DAILY lisinopril 10 mg tablet 10 mg PO DAILY Patient Comments: [NO ORIGINAL SIG] cephalexin 500 mg capsule 500 mg PO BID Primary Care Provider: Rob Martinez Referrals: Rob Martinez MD [Primary Care Provider] - Arielle Gavin MD [Med Staff - Active Staff] - Keep Gabriela appointment Activity Restrictions/Additional Instructions: Take ibuprofen up to every 6 hours as needed for pain, redness and inflammation. Wear Parker wrap as needed to help with compression. Do cool compresses to the area. You may alternate with heat if you desire. If you develop shortness of breath, fever or further concerns please call your surgeon and/or return to the emergency room for repeat evaluation. Print Language: Faroese Disposition Disposition: Home, Self Care
[2024-01-25] MEDS: Ibuprofen 600 MG Tablet PO (09:09)
[2024-01-25 10:00] VITALS: BP 148/71; PULSE 98; RESP 19; TEMP 36.8; O2SAT 98
== END 2024-01-25 10:21 | disposition home or self-care (01) ==
PROVIDERS: Emergency Provider Emergency Medicine; PCP Family Medicine; Visit Provider Emergency Medicine
DX: I80.8 Phlebitis and thrombophlebitis of other sites (principal); I10 Essential (primary) hypertension; E78.00 Pure hypercholesterolemia, unspecified; Z98.890 Other specified postprocedural states
CPT/HCPCS: 93971; 99282